=== PATIENT | female | born 1935 | race Caucasian/White ===

== ENCOUNTER 2018-06-01 03:55 | Emergency (ER) | payer MEDICARE, BC ==
[2018-06-01 04:02] VITALS: RESP 20; TEMP 97.6; O2SAT 97
[2018-06-01 04:08] VITALS: BP 131/83; PULSE 93
== END 2018-06-01 04:55 | disposition home or self-care (01) | DRG 392 ==
LOC: ED 03:55
DX: K52.9 Noninfective gastroenteritis and colitis, unspecified (principal)
CPT/HCPCS: 82962; 99282